=== PATIENT | male | born 1950 | race Caucasian/White ===

== ENCOUNTER → 2021-05-29 10:03 | Outpatient (BNVA) | payer MEDICARE, SELFPAY | PROVIDERS: PCP Internal Medicine; Visit Provider Internal Medicine | DX: R78.81 Bacteremia (principal); B96.20 Unspecified Escherichia coli [E. coli] as the cause of diseases classified elsewhere | CPT/HCPCS: 99202 ==

== ENCOUNTER → 2021-07-13 10:38 | Outpatient (BNVA) | payer MEDICARE, OTHER, SELFPAY | PROVIDERS: Visit Provider Internal Medicine | DX: R78.81 Bacteremia (principal); B96.20 Unspecified Escherichia coli [E. coli] as the cause of diseases classified elsewhere | CPT/HCPCS: 99212 ==

== ENCOUNTER 2025-06-11 14:50 | Outpatient (AMB) | payer MEDICARE, OTHER, SELFPAY ==
--- OUTSIDE RECORDS SUMMARY | 2024-07-24 09:27 | XMS_ITS | Encounter Summary ---
Author Organization [facility] Address [address] [place] [address] Care Team Providers Care Optimization Engineer Name Role Phone Joaquin Brandon MD Primary Care Provider [phone] Encounter Details Date Type Department Care Team (Late st Contact Info) Description 07/24/2024 9:27 AM EDT Hospital Encounter TH HISTORIC ENCOUNTERS EASTERN CONVERSION ONLY Apryl De Santiago MD [address] [place] [address] Social History Tobacco Use Types Packs/Day Years Used Date Smoking Tobacco: Never Passive Smoke Exposure: Never Smokeless Tobacco: Never Alcohol Use Standard Drinks/Week Comments No 3 (1 standard drink = 0.6 oz pur e alcohol) Food Risk Answer Date Recorded Within the past 12 months we worried whether our food would run out before we got money to buy more. Not asked 05/24/2025 Within the past 12 months th e food we bought just didn't last and we didn't have money to get more. Not asked 05/24/2025 Interpersonal Safety Answer Date Record ed Physical Abuse 05/22/2025 Verbal Abuse 05/22/2025 Sex and Gender Information Value Date Recorded Sex Assigned at Male 11/09/2024 11:01 AM EST Legal Sex Male 4:10 PM EST Gender Identity Male 11/09/2024 11:01 AM EST Sexual Orientation Straight 11/07/2024 9: 32 AM EST documented as of this encounter Last Filed Vital Signs Vital Sign Reading Time Taken Comments Blood Pressure 125/56 07/24/2024 9:41 AM EDT Sitting Left arm Pulse 75 07/24/2024 9:41 AM EDT Temperature - - Respiratory Rate - - Oxygen Saturation - - Inhaled Oxygen Concentration - - Weight 93.2 kg (205 lb 6.4 oz) 07/24/2024 9:41 AM EDT Height 182.9 cm (6') 03/13/2024 9:41 AM EDT Body Mass Index 27.86 03/13/2024 9:41 AM EDT documented in this encounter Progress Notes * Apryl De Santiago MD - 07/24/2024 9:30 AM EDT CHIEF COMPLAINT: Follow-up IDENTIFIER:Santy Rodriguez is a 73 y.o. male. HPI: 73-year-old man, who has long history of chronic lymphocytic leukemia with good prognostic marker, currently on acalabrutinib for last few years doing very well ROS: GENERAL: No anorexia, early satiety, fever, chills, night sweats or any significant fatigue HEENT: no headache or any visual symptom NECK: No discomfort or lumps. RESPIRATORY: No cough or shortness of breath CARDIOVASCULAR: No chest pain. GI: No abdominal discomfort, blood in stools or black stools MUSCULOSKELETAL: No joint pain or swelling, back pain, or muscle pain. HEMATOLOGY/LYMPHOLOGY No prolonged bleeding, easy bruisability or swollen nodes EXT: no significant edema NEURO: denies any significant neurological complaint Oncology History Overview Note Patient presented with lymphocytosis [place] [address] 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, IVGH mutation) Patient remains in remission until late 2018 when patient found to have gradual worsening lymphocytosis without any anemia, thrombocytopenia, lymphadenopathy or splenomegaly (patient was also asymptomatic) so decision made to continue follow-up without any therapeutic intervention for now In early 2019 patient started having mild anemia and thrombocytopenia so we were watching closely, patient visit on 04/08/2020 showed worsening blood count as well as moderate splenomegaly so decisionmade to start him on acalabrutinib with Obintuzumab, which he started in first week of April 2020 with a very good response, patient discontinue obinutuzumab in mid August 2020 Patient continue on acalabrutinib with very good response but unfortunately patient have recurrent respiratory infection in 2021 and started on IVIG with a very good response Patient CBC in June 2024 showed total white blood cell count of 6.7, hemoglobin 14.4 g and platelet 1 53,000, with normal differential PAST MEDICAL HISTORY: Dyslipidemia Chronic lymphocytic leukemia Pneumonia Hypogammaglobulinemia COVID-19 infection. ?? SOCIAL HISTORY: He never smoked He drinks alcohol very occasionally He is lives with his He is retired ?? FAMILY HISTORY: Noncontributory Current Outpatient Medications: ??? Calquence 100 MG TABS, TAKE 1 TABLET BY MOUTH TWICE A DAY, Disp: 60 tablet, Rfl: 11 ??? cholecalciferol (VITAMIN D3) 1000 UNITS tablet, Take 1 tablet (1,000 Units total) by mouth daily., Disp: , Rfl: ??? Cyanocobalamin (VITAMIN B-12) 5000 MCG TBDP, Take 50 mcg by mouth daily. , Disp: , Rfl: ??? psyllium (METAMUCIL) 58.6 % packet, Take 1 packet by mouth daily., Disp: , Rfl: ??? simvastatin (ZOCOR) tablet 20 mg, Take 1 tablet (20 mg total) by mouth every night at bedtime.,Disp: , Rfl: ??? Turmeric 400 MG CAPS, Take 500 mg by mouth. , Disp: , Rfl: You are allergic to the following Date Reviewed: 07/24/2024 Allergen Reactions Seasonal Not Noted PHYSICAL EXAM: BP 125/56 (BP Location: Left arm) Pulse 75 Temp 97.3 ??F (36.3 ??C) (Temporal) Wt 93.2 kg (205 lb 6.4 oz) SpO2 99% BMI 27.86 kg/m?? ECOG 0 APPEARANCE: Alert and oriented x 3 in no acute distress EYES: nonicteric sclera pink conjunctiva ORAL CAVITY: No erythema or exudates NECK: Neck supple, no significant adenopathy, HEART: normal S1 and S2 LUNG: clear to auscultation bilaterally LYMPH NODES: No palpable superficial adenopathy ABDOMEN: soft, nontender and no splenomegaly/organomegaly appreciated EXTREMITIES: Extremities warm and well perfused without clubbing, cyanosis, rash or edema NEURO: Oriented X 3, no significant neuro deficit LABS: WBC 6.7, hemoglobin 14.5 g, hematocrit 42.8% and platelet count 153 IMPRESSION: SNOMED CT(R) 1. Hypogammaglobulinemia (HCC) HYPOGAMMAGLOBULINEMIA 2. CLL (chronic lymphocytic leukemia) (HCC) CHRONIC LYMPHOID LEUKEMIA, DISEASE Patient is a very pleasant 73-year-old man who has chronic lymphocytic leukemia with goodprognostic marker like 13q deletion IgH mutation etc., patient is currently on phlebotomy for last few years with a very good response Patient has been taking IVIG with significant response, no evidence of any significant infection inthe last 1 to 2-year. I discussed with the patient about newer class of drug like venetoclax but I told patient since he has been doing very well on acalabrutinib so I will continue acalabrutinib this point PLAN: Continue acalabrutinib Continue IVIG Will discuss with the patient about question switching to venetoclax at next visit Apryl De Santiago MD documented in this encounter Plan of Treatment Upcoming Encounters Date Type Department Care Team (Late st Contact Info) Description 06/18/2025 10:00 AM EDT Office Visit [facility] Hematology Oncology [address] [place] [phone] Apryl De Santiago MD [address] [place] [phone] 06/26/2025 9:30 AM EDT Appointment [facility] [address] [place] [phone] documented as of this encounter Procedures Procedure Name Priority Date/Time Associated Diagnosis Comments ..MISCELLANEOUS REFERENCE LAB TEST 07/24/2024 ..MISCELLANEOUS REFERENCE LAB TEST 07/24/2024 ..MISCELLANEOUS REFERENCE LAB TEST 07/24/2024 documented in this encounter Results * Miscellaneous reference lab test (07/24/2024) us Provider Onbase LAB BLOOD ORDERABLES Final Re sult * Miscellaneous reference lab test (07/24/2024) us Provider Onbase MD LAB BLOOD ORDERABLES Final Re sult * Miscellaneous reference lab test (07/24/2024) us Provider Onbase MD LAB BLOOD ORDERABLES Final Re sult documented in this encounter Visit Diagnoses Not on filedocumented in this encounter Care Teams Optimization Engineer Relationship Specialty Start Date End Date Joaquin Brandon MD [address] [place] [address] PCP - General Internal Medicine 11/16/21 documented as of this encounter
--- NOTE | 2025-06-11 14:56 | MHC.OFFVIS ---
Vital Signs 06/11/25 14:57 Height 6 ft 1 in Weight 173 lb 1.006 oz BMI 22.8 BP 128/52 L Blood Pressure Location Lt brachial Position Sitting Pulse 95 Pulse Source Pulse Oximeter Pulse Oximetry (%) 98 Oxygen Delivery Method Room Air Intake Visit Reasons: pneumonia Security Assurance Analyst Required: No Accompanied by: Spouse Allergies No Known Allergies Allergy (Verified 06/11/25 15:00) HPI Comments Details: The patient is here for pulmonary evaluation. The patient is a 74-year-old gentleman with a history of CLL on Ibrutinib and also IVIG infusions. Apparently he had worsening respiratory symptoms was frequent pneumonias. He was been given courses of antibiotics to treat him. The patient also ended up in the hospital and did have a CT scan of the chest at [facility] demonstrating some degree of pulmonary fibrosis. I do not have those studies and I did request him to be able to review. In the meantime back in 2020 he did have a CT scan of the abdomen at [facility] and I was able to review that. During that time the patient did have some slight reticular changes to the bilateral lung bases. Otherwise lung parenchyma appeared to be okay. The patient has been on the IVIG and the seems to be affecting beneficial. He understands that he still is potentially immunocompromised depending on the other humeral levels. During the visit the patient did have some crackles in the right base but very limited to that area otherwise good aeration. He was able to ambulate very well and maintain a pulse ox of 98% with activity which is rarely reassuring. The patient however did look pale and he recently he was admitted to the hospital with a bowel obstruction and did not need surgery for lysis of adhesions. This is all per report. The patient is admitted to [facility]. The patient just recently was discharged from the hospital and likely still recovering from that. Will go ahead and request blood work at this time he is going to get blood work tomorrow for his oncologist. The patient also may need additional imaging studies to follow-up with the pulmonary fibrosis and interstitial lung disease. [facility] Medical History (Updated 06/11/25 @ 21:10 by Edgar Alex MD) Hypogammaglobulinemia CLL (chronic lymphocytic leukemia) Pneumonia Pulmonary fibrosis E coli bacteremia Sigmoid diverticulitis Family History Mother HTN (hypertension) Father High cholesterol Depression Brother Stomach cancer Social History Household Members: Spouse Housing: House Alcohol intake: current Patient Tobacco Use Status: Never used Tobacco Review of Systems Const Reports weight loss Eyes Reports no additional complaints ENT Reports no additional complaints Card Reports dyspnea on exertion Resp Reports cough, Denies pain on inspiration, Denies pain with cough, Reports dyspnea on exertion and Denies wheezing GI Reports as per HPI and Reports abdominal pain Musc Reports no additional complaints Skin/Breast Denies rash Neuro Reports no additional complaints Enrique/Lymph Reports as per HPI and Denies easy bruising Aller/Immun Denies wheezing Physical Exam Vital Signs: Last Vital Signs Pulse 95 06/11/25 14:57 BP 128/52 L 06/11/25 14:57 Pulse Ox 98 06/11/25 14:57 Oxygen Delivery Method Room Air 06/11/25 14:57 BMI result Body Mass Index 22.8 Const General: comfortable HEENT Head: Yes normocephalic Eyes Conjunctivae: conjunctival abnormal bilateral pallor Neck Neck: Yes supple Chest Chest palpation & inspection: normal inspection of the chest Resp Effort & Inspection: normal respiratory effort Auscultation: crackles on the right at the base Cardio Heart sounds: S1 normal heart sound present and S2 normal heart sound present GI Palpation (GI): Soft to palpation Skin General skin exam: no rashes or lesions noted Extrem General: Yes no clubbing, cyanosis or edema Assessment & Plan Assessment & Plan (1) Pulmonary fibrosis: Code(s): J84.10 - Pulmonary fibrosis, unspecified Category: Medical (2) Pneumonia: Code(s): J18.9 - Pneumonia, unspecified organism Category: Medical Qualifiers: Laterality: unspecified laterality Lung location: unspecified part of lung Pneumonia type: due to unspecified organism Qualified Code(s): J18.9 - Pneumonia, unspecified organism (3) CLL (chronic lymphocytic leukemia): Code(s): C91.10 - Chronic lymphocytic leukemia of B-cell type not having achieved remission Category: Medical (4) Hypogammaglobulinemia: Code(s): D80.1 - Nonfamilial hypogammaglobulinemia Category: Medical Plan bloodwork Need to review last CT chest from [facility] May need serial imaging Holding PFTs as he is healing from Abdominal surgery conitnue IVIG continue exercise as tolerated F/U 2-3 months Orders: Orders TEX Reflex Titer and Pattern Today J84.10 - Pulmonary fibrosis, unspecified Immunoglobulins,IgG IgA IgM Today J84.10 - Pulmonary fibrosis, unspecified ANCA Vasculitides Today J84.10 - Pulmonary fibrosis, unspecified Erythrocyte Sedimentation Rate Today J84.10 - Pulmonary fibrosis, unspecified Immunoglobulin G Subclasses Today J84.10 - Pulmonary fibrosis, unspecified Immunoglobulin E Today J84.10 - Pulmonary fibrosis, unspecified Hypersensitive Pneumonitis Prf Today J84.10 - Pulmonary fibrosis, unspecified, R91.8 - Other nonspecific abnormal finding of lung field Coding Level of Care Code New Pt Level 5 (63752) Diagnoses Pulmonary fibrosis J84.10 Pneumonia due to infectious organism, unspecified laterality, unspecified part of lung J18.9 Laterality: unspecified laterality Lung location: unspecified part of lung Pneumonia type: due to unspecified organism CLL (chronic lymphocytic leukemia) C91.10 Hypogammaglobulinemia D80.1 Time Spent (min) 60
[2025-06-11 14:57] VITALS: BP 128/52; PULSE 95; O2SAT 98; BMI 22.8
--- OUTSIDE RECORDS SUMMARY | 2025-06-11 16:15 | XMS_ITS ---
Author Name [facility] Organization Unknown Care Team Organization Name Specialty Phone Email Start Date End Da te [facility] Termed, PROVIDER Primary Care 08/31/202205/24
--- OUTSIDE RECORDS SUMMARY | 2025-06-11 16:15 | XMS_ITS ---
Author Organization [facility] Address [address] [place] [address] Care Team Providers Care Mental Health Unit Lead Psychologist Name Role Phone Joaquin Brandon MD Primary Care Provider [phone] Active Problems Problem Noted Date Diagnosed Date Hypogammaglobulinemia 03/04/2022 CLL (chronic lymphocytic leukemia) 04/05/2017 Current Oncology Plans No current plan information found. Other Current Plans [facility] IVIG (GAMMAGARD) (ADULT)* Plan Start Date:07/27/2023 Plan Provider:Apryl De Santiago MD Linked Problems Hypogammaglobulinemia (HCC) Treatment Medications acetaminophen (TYLENOL)albut maia (PROVENTIL)diphenhydrAMINE (BENADRYL)EPINEPHrine (Anaphylaxis) (ADRENALIN)famotidine (PF) (PEPCID)Hydrocortisone Sod Suc (PF) (Solu-CORTEF)immune globulin (Human) (GAMMAGARD)meperidine (DEMEROL) 25 MG/MLSaline Flush 0.9 %sodium chloride (NS) 0.9 %sodium chloride 0.9% bolus (NS) Past Plans Radiation Treatments * No radiation treatments are documented for this patient in [facility]. Treatments may have been administered in another system.
== END 2025-06-11 16:15 | disposition home or self-care (01) ==
PROVIDERS: PCP Internal Medicine; Visit Provider Hospitalist
DX: J84.10 Pulmonary fibrosis, unspecified (principal); J18.9 Pneumonia, unspecified organism; C91.10 Chronic lymphocytic leukemia of B-cell type not having achieved remission; D80.1 Nonfamilial hypogammaglobulinemia
CPT/HCPCS: 99205

== ENCOUNTER → 2025-06-11 14:50 | Outpatient (BNVA) | payer MEDICARE, SELFPAY | PROVIDERS: PCP Internal Medicine; Visit Provider Hospitalist | DX: J18.9 Pneumonia, unspecified organism (principal); J84.10 Pulmonary fibrosis, unspecified; C91.10 Chronic lymphocytic leukemia of B-cell type not having achieved remission; D80.1 Nonfamilial hypogammaglobulinemia; R91.8 Other nonspecific abnormal finding of lung field | CPT/HCPCS: 99202 ==

== ENCOUNTER 2025-07-17 11:46 | Outpatient (REF) | payer MEDICARE, OTHER, SELFPAY ==
--- OUTSIDE RECORDS SUMMARY | 2025-07-17 14:45 | XMS_ITS | Encounter Summary ---
Author Organization [facility] Address [address] [place] [address] Care Team Providers Care Labor Arbitrator Hearing Office Name Role Phone Unavailable Primary Care Provider Unavailabl e Encounter Details Date Type Department Care Team (Latest Contact Info) Description [facility] [address] [place] [address] [address] [place] [address] Law Farrell MD [address] [place], [place] [id number] Encounter for laboratory testing for COVID-19 virus Social History Tobacco Use Types Packs/Day Years Used Date Smoking Tobacco: Never Assessed Sex and Gender Information Value Date Recorded Sex Assigned at Not on file Legal Sex Male 3:34 PM EST Gender Identity Not on file Sexual Orientation Not on file documented as of this encounter Plan of Treatment Not on file documented as of this encounter Procedures Procedure Name Priority Date/Time Associated Diagnosis Comments COVID-19 (SARS-COV-2) TERRELL Routine 01/19/2021 10:25 AM EDT Encounter for laboratory testing for COVID-19 virus [ICD-10-CM] documented in this encounter Results * COVID-19 (SARS-CoV-2), TERRELL (In-House) (01/19/2021 10:25 AM EDT) SARS CoV 2 Not Detected Not Detected 01/19/2021 5:13 PM EDT [facility] Comment: Negative results do not preclude SARS-CoV-2 (COVID-19)infection and should not be used as the sole basis for treatment or other patient management decisions. The SARS-CoV-2 (Covid-19) Nucleic Acid Amplification Assay is limited to laboratories certified under the Clinical Laboratory Improvement Amendments of 1988 (CLIA), 42 U.S.C. 263a, to perform high complexity tests. Nucleic acid amplication tests include RT-PCR and TMA. This assay has not been FDA cleared or approved, however, this assay has been authorized by the Food and Drug Administration (FDA) under an Emergency Use Authorization (EUA). Validation was completed and performance characteristics established by [facility] as per the FDA and CLIA requirement for this EUA. The Aptima SARS-CoV-2 assay Letter of Authorization, along with the authorized Fact Sheet for Healthcare Providers, the authorized Fact Sheet for Patients, and authorized labeling are available on the FDA website: https://www.fda.gov/medical-devices/sfyudhtth-qxcyezgtwa-hycewie-devices/emergen -us h-ckpzbijxfaqxzg-ywsdovm-devices. Performed at [facility], [place], [place] License [id number] CLIA [id number] Source Nasopharyngeal 01/19/2021 5:13 PM EDT [facility] Comment:Performed at [facility], [facility], [place] license No. [id number] CLIA No. [id number] Microbiology Nasopharyngeal swab / Unknown 01/19/2021 10:25 AM EDT 01/19/2021 10:25 AM EDT us Law Farrell MD MICROBIOLOGY - GENERAL ORDER ALEC Final Result [facility] [address] [place] [address] documented in this encounter Visit Diagnoses Diagnosis Encounter for laboratory testing for COVID-19 virus documented in this encounter
--- OUTSIDE RECORDS SUMMARY | 2025-07-17 14:45 | XMS_ITS ---
Author Organization [facility] Address [address] [place] [address] Care Team Providers Care Building Inspection Engineer Name Role Phone Joaquin Brandon MD Primary Care Provider [phone] Active Problems Problem Noted Date Diagnosed Date Hypogammaglobulinemia 03/04/2022 CLL (chronic lymphocytic leukemia) 04/05/2017 Current Oncology Plans No current plan information found. Other Current Plans [facility] IVIG (GAMMAGARD) (ADULT)* Plan Start Date:07/27/2023 Plan Provider:Apryl De Santiago MD Linked Problems Hypogammaglobulinemia (HCC) Treatment Medications acetaminophen (TYLENOL)albut maia (PROVENTIL)diphenhydrAMINE (BENADRYL)EPINEPHrine (Anaphylaxis) (ADRENALIN)famotidine (PF) (PEPCID)Hydrocortisone Sod Suc (PF) (Solu-CORTEF)immune globulin (Human) (GAMMAGARD)meperidine (DEMEROL) 25 MG/MLSaline Flush 0.9 %sodium chloride (NS) 0.9 %sodium chloride 0.9% bolus (NS) Past Plans Radiation Treatments * No radiation treatments are documented for this patient in [facility]. Treatments may have been administered in another system.
--- OUTSIDE RECORDS SUMMARY | 2025-07-17 14:45 | XMS_ITS | Encounter Summary ---
Author Organization [facility] Address [address] [place] [address] Care Team Providers Care Tax Assessor Name Role Phone Joaquin Brandon MD Primary Care Provider [phone] Encounter Details Date Type Department Care Team Description 04/14/2020 Nurse Only [facility] Oncology Services [address] [place] [address] Khadijah William RN Social History Tobacco Use Types Packs/Day Years Used Date Smoking Tobacco: Never Smokeless Tobacco: Never Alcohol Use Standard Drinks/Week Comments No 0 (1 standard drink = 0.6 oz pur e alcohol) occasional Sex and Gender Information Value Date Recorded Sex Assigned at Male 03/30/2022 10:05 AM EDT Gender Identity Male 03/30/2022 10:05 AM EDT Sexual Orientation Straight 03/30/2022 10 :05 AM EDT Job Start Date Occupation Industry Not on file Not on file Not on file documented as of this encounter Plan of Treatment Not on file documented as of this encounter Visit Diagnoses Not on filedocumented in this encounter Care Teams Tax Assessor Relationship Specialty Start Date End Date Joaquin Brandon MD [address] [address] PCP - General Buyer Assistant 11/10/21 documented as of this encounter
--- OUTSIDE RECORDS SUMMARY | 2025-07-17 14:45 | XMS_ITS | Encounter Summary ---
Author Organization [facility] Address [address] [place], [place] [id number] Care Team Providers Care Fancy Needleworker Name Role Phone Unavailable Primary Care Provider Unavailabl e Encounter Details Date Type Department Care Team (Latest Contact Info) Description 09/17/2020 Lab Requisition [facility] COVID [address] Through [address] [place] [address] [address] [place] [address] Destin Gross PA-C [address] [place] [address] [phone] Encounter for laboratory testing for COVID-19 virus [...] Procedure Name Priority Date/Time Associated Diagnosis Comments (REPORT) SARS COV-2 RNA (COVID-19), QUAL Routine 09/17/2020 3:35 PM EST Encounter for laboratory testing for COVID-19 virus [ICD-10-CM] documented in this encounter Results * SARS CoV-2 RNA (COVID-19), Qual (09/17/2020 3:35 PM EST) SARS CoV 2 RNA, Qual NOT DETECTED NOT DETECTED 09/22/2020 2:00 PM EST [facility] Comment: A Not Detected (negative) test result for this test means that SARS-CoV-2 RNA was not present in the specimen above the limit of detection. A negative result does not rule out the possibility of COVID-19 and should not be used as the sole basis for treatment or patient management decisions. If COVID-19 is still suspected, based on exposure history together with other clinical findings, re-testing should be considered in consultation with public health authorities. Laboratory test results should always be considered in the context of clinical observations and epidemiological data in making a final diagnosis and patient management decisions. REFERENCE RANGE: NOT DETECTED This patient specimen was tested using an FDA EUA pooling method. Negative results from pooled testing should not be treated as definitive. If the patient's clinical signs and symptoms are inconsistent with a negative result or results are necessary for patient management, then the patient should be considered for individual testing. Specimens with low viral loads may not be detected in sample pools due to the decreased sensitivity of pooled testing. Please review the Fact Sheets and FDA authorized labeling available for health care providers and patients using the following websites: https://www.[employer].FanTrail/home/Covid-19/HCP/QuestLDTP/ fact-sheet https://www.[employer].FanTrail/home/Covid-19/Patients/QuestLDTP/ fact-sheet.html This test has been authorized by the FDA under an Emergency Use Authorization (EUA) for use by authorized laboratories. Due to the current public health emergency, [facility] is receiving a high volume of samples from a wide variety of swabs and media for COVID-19 testing. In order to serve patients during this public health crisis, samples from appropriate clinical sources are being tested. Negative test results derived from specimens received in non-commercially manufactured viral collection and transport media, or in media and sample collection kits not yet authorized by FDA for COVID-19 testing should be cautiously evaluated and the patient potentially subjected to extra precautions such as additional clinical monitoring, including collection of an additional specimen. Methodology: Nucleic Acid Amplification Test (NAAT) includes RT-PCR or TMA Additional information about COVID-19 can be found at the [facility] website: www.[employer].FanTrail/Covid19. Microbiology Nasopharyngeal swab / Unknown 09/17/2020 3:35 PM EST 09/17/2020 3:35 PM EST Tim [facility] - 09/22/2020 2:00 PM EST Performing Organization Information: Site ID: [id number] Name: [facility] Address: [address] [place] [address],[place] [address] Director: LISSA CAMPBELL MD [facility] License number [id number] Destin Gross PA-C BODY FLUIDS AND STOOLS OR DERABLES Final Result Performing Organization Address City/State/[facility] Co de Phone Number [facility] documented in this encounter Visit Diagnoses Diagnosis Encounter for laboratory testing for COVID-19 virus documented in this encounter
--- OUTSIDE RECORDS SUMMARY | 2025-07-17 14:45 | XMS_ITS | Clinical Summary ---
Author Organization [facility] Address [address] [place] [address] Care Team Providers Care Assistant Executive Housekeeper Name Role Phone Unavailable Primary Care Provider Unavailabl e Social History Tobacco Use Types Packs/Day Years Used Date Smoking Tobacco: Never Assessed Sex and Gender Information Value Date Recorded Sex Assigned at Not on file Legal Sex Male 3:34 PM EST Gender Identity Not on file Sexual Orientation Not on file Plan of Treatment Health Maintenance Due Date Last Done Comments Advance Care Planning 1950 Hepatitis C Virus Screening 1950 DTaP/Tdap/Td Vaccines (1 - Tdap) 1971 Pneumococcal Vaccines 50+ (1 of 1 - PCV) 2002 Zoster (Shingles) Vaccine (1 of 2) 2002 COVID-19 Vaccine ( - 2023-2 5 season) 2025 RSV Vaccine 60 years and old er and Patients (1 - 1-dose 75+ series) 2027 Hepatitis B Vaccines Aged Out No long er eligible based on patient's age to complete this topic
--- OUTSIDE RECORDS SUMMARY | 2025-07-17 14:45 | XMS_ITS | Clinical Summary ---
Author Organization [facility] Address [address] [place] [address] Care Team Providers Care Admiralty Lawyer Name Role Phone Joaquin Brandon MD Primary Care Provider [phone] Allergies Active Allergy Reactions Criticality Noted Date Comments Seasonal 02/27/2019 Medications Medication Sig Dispensed Refills Start Date End Date Status Cyanocobalamin (VITAMIN B-12) 5000 MCG TBDP Take 50 mcg by mouth daily. 0 Active cholecalciferol (VITAMIN D3) 1000 UNITS tablet Take 1 tablet (1,000 Units total) by mouth daily. 0 Active simvastatin (ZOCOR) tablet 20 mg Take 1 tablet (20 mg total) by mouth every night at bedtime. 0 Active psyllium (METAMUCIL) 58.6 % packet Take 1 packet by mouth daily. 0 Active Turmeric 400 MG CAPS Take 500 mg by mouth. 0 Active Calquence 100 MG TABSIndications:CLL (chronic lymphocytic leukemia) ([facility]) TAKE 1 TABLET BY MOUTH TWICE A DAY 60 tablet 11 01/23/2024 Active Active Problems Problem Noted Date Diagnosed Date Hypogammaglobulinemia 03/04/2022 CLL (chronic lymphocytic leukemia) 04/05/2017 Social History Tobacco Use Types Packs/Day Years [...] file Not on file Not on file Last Filed Vital Signs Vital Sign Reading Time Taken Comments Blood Pressure 132/58 08/09/2024 1:07 PM EDT Pulse 72 08/09/2024 1:07 PM EDT Temperature 36.4 C (97.5 F) 08/09/2024 1:07 PM EDT Respiratory Rate 18 08/09/2024 1:07 PM EDT Oxygen Saturation 100% 08/09/2024 1:07 PM EDT Inhaled Oxygen Concentration - - Weight 94.7 kg (208 lb 12.4 oz) 08/09/2024 1:07 PM EDT Height 182.9 cm (6') 03/13/2024 9:41 AM EDT Body Mass Index 28.32 03/13/2024 9:41 AM EDT Plan of Treatment Health Maintenance Due Date Last Done Comments Hepatitis C Screening 1950 Depression Screening 1964 Preventative Health Evaluation 1970 Colon Cancer Screening (Colonoscopy) 1997 RSV Adult > 60+ Yrs or (1 - Risk 60-74 years 1-dose series) 2012 Fall Risk Assessment 2017 Pneumococcal Vaccine (4 of 4 - PPSV23 or PCV20) 09/16/2019 10/20/2017, 09/16/2014, 08/11/2014 DTap / Tdap / Td (2 - Td or Tdap) 07/23/2020 07/23/2010 COVID-19 Vaccine (3 - Pfizer risk series) 02/19/2021 01/22/2021, 12/30/2020 Influenza Vaccine (#1) 2025 0, 08/06/2019, 08/06/2019, Additional history exists Shingrix-Zoster Vaccine Completed 06/19/2019, 01/22 Hepatitis B Vaccines Aged Out No long er eligible based on patient's age to complete this topic RSV Ped < 20 months Aged Out No longe r eligible based on patient's age to complete this topic Care Teams Admiralty Lawyer Relationship Specialty Start Date End Date Joaquin Brandon MD [address] [facility] [address] [place] [address] PCP - General Director Equipment 11/10/21
--- OUTSIDE RECORDS SUMMARY | 2025-07-17 14:45 | XMS_ITS | Encounter Summary ---
Author Organization [facility] Address [address] [place], [place] [id number] Care Team Providers Care Hair Baler Name Role Phone Unavailable Primary Care Provider Unavailabl e Encounter Details Date Type Department Care Team (Latest Contact Info) Description 10/20/2020 Lab Requisition [facility] COVID Drive Through [address] [place] [address] [address] [place] [address] Dsetin Gross PA-C [address] [place] [address] [phone] Encounter for laboratory testing for COVID-19 virus [...] Priority Date/Time Associated Diagnosis Comments COVID-19 (SARS-COV-2) - [facility] Routine 10/20/2020 6:32 PM EST Encounter for laboratory testing for COVID-19 virus [ICD-10-CM] documented in this encounter Results * COVID-19 (SARS-COV-2) ([facility]) (10/20/2020 6:32 PM EST) COVID-19 RT-PCR NOT-DETEC GEOVANNA Not-Detec geovanna 10/23/2020 10:06 AM EST [facility] - [place] Comment:Interpretation: The viral RNA was not detected, making the COVID-19 diagnosis less likely. Clinical correlation is highly recommended.Final report signed by Tammi Hussein, Ph.D., Laboratory DirectorTests performed at [facility] Microbiology Nasopharyngeal swab / Unknown 10/20/2020 6:32 PM EST 10/20/2020 6:32 PM EST Narrative LEANDRA FOX - 10/23/2020 10:06 AM EST Performed by [facility], [employer] [address] [place] [address], CLIA# [id number] and [place] License# [id number] us Destin Gross PA-C MICROBIOLOGY - GENERAL OR DERABLES Final Result LEANDRA CATALINA Jay Jay FOX documented in this encounter Visit Diagnoses Diagnosis Encounter for laboratory testing for COVID-19 virus documented in this encounter
== END 2025-07-17 11:47 | disposition home or self-care (01) ==
LOC: CF 11:46
DX: Z13.89 Encounter for screening for other disorder (principal)